=== PATIENT | female | born 1990 ===

== ENCOUNTER 2017-11-03 02:04 | Emergency (ER) | payer MEDICAID, OTHER ==
[2017-11-03] MEDS ORDERED: Sodium Chloride 0.9% 1,000 ML IV ONE (02:22)
--- NOTE | 2017-11-03 02:22 | C.PDOC ---
History Of Present Illness The patient presents to the ED for evaluation of severe epigastric abdominal pain and nausea which began today. Patient describes a sharp, stabbing pain which radiates to her back. She denies fever, chills, vomiting, diarrhea, or urinary symptoms. Patient is A2. Time Seen by Provider: 11/03/17 02:22 Chief Complaint (Nursing): Abdominal Pain History Per: Patient History/Exam Limitations: no limitations Onset/Duration Of Symptoms: Hrs Current Symptoms Are (Timing): Still Present Context: Other (unknown ) Severity: Moderate Pain Scale Rating Of: 6 Location Of Pain/Discomfort: Epigastric (mid ) Radiation Of Pain To:: Back Quality Of Discomfort: Sharp, Stabbing, "Pain" Associated Symptoms: Nausea. denies: Fever, Chills, Vomiting, Diarrhea, Urinary Symptoms Exacerbating Factors: None Alleviating Factors: None Last Bowel Movement: Today Recent travel outside of the [place]: No Additional History Per: Patient Abnormal Vaginal Bleeding: No Past Medical History Reviewed: Historical Data, Nursing Documentation, Vital Signs Vital Signs: Last Vital Signs Temp 98.7 F 11/03/17 04:14 Pulse 78 11/03/17 05:39 Resp 18 11/03/17 05:39 BP 90/44 L 11/03/17 05:39 Pulse Ox 100 11/03/17 06:06 - Medical History PMH: No Chronic Diseases Surgical History: No Surg Hx Family History: States: Unknown Family Hx - Social History Hx Alcohol Use: No Hx Substance Use: No - Immunization History Hx Tetanus Toxoid Vaccination: No Hx Influenza Vaccination: No Hx Pneumococcal Vaccination: No Review Of Systems Constitutional: Negative for: Fever, Chills Cardiovascular: Negative for: Chest Pain, Palpitations Respiratory: Negative for: Cough, Shortness of Breath Gastrointestinal: Positive for: Nausea, Abdominal Pain (mid-epigastric ). Negative for: Vomiting, Diarrhea Genitourinary: Negative for: Dysuria, Frequency, Hematuria Musculoskeletal: Positive for: Back Pain Skin: Negative for: Rash, Lesions, Jaundice, Bruising Neurological: Negative for: Weakness, Numbness Physical Exam - Physical Exam Appears: Non-toxic, No Acute Distress Skin: Warm, Dry Head: Normacephalic Eye(s): bilateral: Normal Inspection Oral Mucosa: Moist Neck: Supple Chest: Symmetrical, No Deformity Cardiovascular: Rhythm Regular, No Murmur Respiratory: No Rales, No Rhonchi, No Wheezing Gastrointestinal/Abdominal: Soft, Tenderness (mid-epigastric and periumbilical ) , No Guarding, No Rebound Back: CVA Tenderness (mild, right-sided ) Extremity: Normal ROM, Capillary Refill (less than 2 seconds ) Neurological/Psych: Oriented x3 ED Course And Treatment - Laboratory Results Result Diagrams: 11/03/17 02:27 11/03/17 02:27 Lab Interpretation: No Acute Changes O2 Sat by Pulse Oximetry: 100 (on RA) Pulse Ox Interpretation: Normal - CT Scan/US Ultrasound Other Rad Studies (CT/US): Read By Radiologist, Radiology Report Reviewed CT/US Interpretation: EXAM: US First Trimester, Transabdominal. US , Transvaginal. CLINICAL HISTORY: 26 years old, female; Pain; complicated by abdominal or pelvic pain; Lower; First. trimester; Gestational age or lmp: 10/17/2017; ; Additional info: Abd pain, back pain,. possible ectopic. TECHNIQUE: Real-time transabdominal and transvaginal obstetrical ultrasound of the maternal pelvis and a first. trimester with image documentation. Transvaginal imaging was used for better evaluation. of the fetus and adnexa. Real time cine loop images are submitted. 78 images are. submitted.Grayscale, color and spectral pulse Doppler images are submitted.A duplex/doppler. ultrasound was performed specifically BOTH COLOR FLOW AND spectral Doppler analysis. (waveforms) were performed and interpreted. COMPARISON: No relevant prior studies available. FINDINGS: Gestation: See below. Placenta/amniotic fluid: Cannot be adequately evaluated due to the early gestational age. Uterus/cervix: The endometrial stripe measures 7 mm. No myometrial mass. Ovaries: There is left adnexal mass measuring 2.1 x 1.5 x 2.1 cm medial to the left ovary suspicious. for ectopic until proven otherwise. The right ovary measures 2.1 x 1.6 x 3.0 cm. Duplex. assessment demonstrates presence of color Doppler signal and spectral Doppler waveform in right. ovary. The left ovary measures 2.4 x 1.5 x 2.6 cm. Duplex assessment demonstrates presence of. color Doppler signal and spectral Doppler waveform in left ovary. Free fluid: No free fluid. IMPRESSION: 1. There is left adnexal mass measuring 2.1 x 1.5 x 2.1 cm medial to the left ovary suspicious. for ectopic until proven otherwise. 2. No demonstrable intrauterine or extrauterine . With a positive test, the. differential diagnosis includes a recent spontaneous and very early intrauterine or extra. uterine . Careful follow-up including correlation with beta HCG levels is recommended. The possibility of ectopic cannot be excluded at this time. Progress Note: Bloodwork and urinalysis ordered. Morphine IVP, Zofran IVP and IV Fluids given. Patients urine HCG results are positive. 1st Trimester/OB Ultrasound ordered. 5:[address] blandon - oil changer- will come and see the pt. as per dr blandon - pt opting for methotrexate treatment; will retrun on thursday for repeat bHCG Reevaluation Time: 06:44 Reassessment Condition: Improved Critical Care Time - Critical Care Note Total Time (in mins): 30 Documented critical care: time excludes all time spent performing seperately billable procedures. Disposition Counseled Patient/Family Regarding: Studies Performed, Diagnosis, Need For Followup - Disposition Referrals: [facility] [Outside] [facility] [Outside] Disposition: HOME/ ROUTINE Disposition Time: 02:22 Condition: FAIR Additional Instructions: Por favor regrese el viernes 24 de denita para repetir el anlisis de lenny Instructions: Ectopic (DC) Forms: [facility] (Hungarian) Print Language: YORUBA - Clinical Impression Clinical Impression: Ectopic , tubal - Scribe Statement The provider has reviewed the documentation as recorded by the Scribe (Monica Chew) Provider Attestation: All medical record entries made by the Scribe were at my direction and personally dictated by me. I have reviewed the chart and agree that the record accurately reflects my personal performance of the history, physical exam, medical decision making, and the department course for this patient. I have also personally directed, reviewed, and agree with the discharge instructions and disposition.
[2017-11-03] MEDS ORDERED: Sodium Chloride 0.9% 1,000 ML ONE (02:29)
[2017-11-03 02:32] LABS: BASO # 0.1 K/uL (0.0-0.2); BASO % 1.2 % (0.0-2.0); EOS # 0.2 K/uL (0.0-0.7); EOS % 1.8 % (0.0-4.0); HCG,QUALITATIVE URINE POSITIVE (NEGATIVE); HEMOGLOBIN 13.7 g/dL (11.0-16.0); LYMPH # 3.1 K/uL (1.0-4.3); LYMPH % 33.4 % (20.0-40.0); MEAN CELL VOLUME 80.7 fL (81.0-99.0); MEAN CORPUSCULAR HEMOGLOBIN 28.5 pg (27.0-31.0); MEAN CORPUSCULAR HGB CONC 35.3 g/dL (33.0-37.0); MEAN PLATELET VOLUME 9.5 fL (7.2-11.7); MONO # 0.7 K/uL (0.0-0.8); MONO % 7.2 % (0.0-10.0); NEUT # 5.2 K/uL (1.8-7.0); NEUT % 56.4 % (50.0-75.0); NRBC % 0.1 % (0.0-2.0); RBC 4.81 Mil/uL (3.80-5.20); RED CELL DISTRIBUTION WIDTH 13.2 % (11.5-14.5); WHITE BLOOD COUNT 9.2 K/uL (4.8-10.8)
[2017-11-03 02:37] LABS: SQUAMOUS EPITHIAL 6 /hpf (0-5); URINE BILIRUBIN NEGATIVE (NEGATIVE); URINE BLOOD 2+ (NEGATIVE); URINE CLARITY Clear (Clear); URINE COLOR Straw (YELLOW); URINE GLUCOSE (UA) NORMAL (Normal); URINE LEUKOCYTE ESTERASE NEG Leu/uL (Negative); URINE PROTEIN NEGATIVE (NEGATIVE); URINE UROBILINOGEN NORMAL mg/dL (0.2-1.0)
[2017-11-03 02:39] LABS: INR 1.1; PROTHROMBIN TIME 11.9 SECONDS (9.7-12.2)
[2017-11-03 02:47] LABS: ALB/GLOB RATIO 1.6 (1.0-2.1); ALBUMIN 5.2 g/dL (3.5-5.0); ALT/SGPT 14 U/L (9-52); AST/SGOT 20 U/L (14-36); BLOOD UREA NITROGEN 11 mg/dL (7-17); CALCIUM 10.3 mg/dl (8.6-10.4); GFR NON-AFRICAN AMERICAN > 60; LIPASE 240 U/L (23-300)
--- NOTE | 2017-11-03 06:58 | CP.PCM.CON ---
History of Present Illness - History of Present Illness History of Present Illness: Pt is a 26yo LMP 10/17/17 presented to ED w/ c/o acute severe midepigastric pain with radiation to back @ 12am. She denies emesis/ pelvic pain. Pt states she is taking a monthly contraceptive, cyclofemo, from [facility] which she takes when her menses ends. She states her lmp was irregular in that the bleeding has been light but has continued to present. Last coitus 4days ago. POBXH: CD x2; EAB w/ d&c in early 1st trim x2 PSHX: as above nkda medic: Cyclofem PMXH: cholelithiasis Review of Systems - Constitutional Constitutional: absent: Anorexia, Chills, Fatigue - Cardiovascular Cardiovascular: absent: Chest Pain - Respiratory Respiratory: absent: Dyspnea on Exertion - Gastrointestinal Gastrointestinal: Abdominal Pain, Nausea. absent: Change in Bowel Habits, Vomiting - Genitourinary Genitourinary: absent: Difficulty Urinating - Reproductive: Female Reproductive:Female: Abnormal Vaginal Bleeding. absent: Pelvic Pain - Neurological Neurological: Weakness Past Patient History - Infectious Disease Hx of Infectious Diseases: None - Past Social History Smoking Status: Never Smoked - PSYCHIATRIC Hx Substance Use: No - SURGICAL HISTORY Hx Surgeries: Yes Hx Section: Yes - ANESTHESIA Hx Anesthesia: Yes Hx Anesthesia Reactions: No Meds Allergies/Adverse Reactions: Allergies Allergy/AdvReac Type Severity Reaction Status Date / Time No Known Allergies Allergy Verified 11/03/17 02:19 Physical Exam - Constitutional Appears: Well - Head Exam Head Exam: ATRAUMATIC, NORMOCEPHALIC - Respiratory Exam Respiratory Exam: NORMAL BREATHING PATTERN - GI/Abdominal Exam GI & Abdominal Exam: Soft. absent: Distended, Rebound, Tenderness - Exam Bimanual exam: absent: Cervical Motion Tendernes (adnexa nontender), Uterine Enlargement - Neurological Exam Neurological exam: Oriented x3 - Psychiatric Exam Psychiatric exam: Normal Affect, Normal Mood Results - Vital Signs Recent Vital Signs: Last Vital Signs Temp 98.7 F 11/03/17 04:14 Pulse 78 11/03/17 05:39 Resp 18 11/03/17 05:39 BP 90/44 L 11/03/17 05:39 Pulse Ox 100 11/03/17 06:46 - Labs Result Diagrams: 11/03/17 02:27 11/03/17 02:27 Labs: Laboratory Results - last 24 hr 11/03/17 11/03/17 11/03/17 02:27 02:27 02:27 WBC 9.2 RBC 4.81 Hgb 13.7 Hct 38.8 MCV 80.7 L MCH 28.5 MCHC 35.3 RDW 13.2 Plt Count 290 MPV 9.5 Neut % (Auto) 56.4 Lymph % (Auto) 33.4 [place] % (Auto) 7.2 Eos % (Auto) 1.8 Baso % (Auto) 1.2 Neut # (Auto) 5.2 Lymph # (Auto) 3.1 [place] # (Auto) 0.7 Eos # (Auto) 0.2 Baso # (Auto) 0.1 PT 11.9 INR 1.1 APTT 35 H Sodium Potassium Chloride Carbon Dioxide Anion Gap BUN Creatinine Est GFR ( Amer) Est GFR (Non-Af Amer) Random Glucose Calcium Total Bilirubin AST ALT Alkaline Phosphatase Total Protein Albumin Globulin Albumin/Globulin Ratio Lipase Beta HCG, Quant Urine Color Straw Urine Clarity Clear Urine pH 7.0 Ur Specific [place] 1.012 Urine Protein Negative Urine Glucose (UA) Normal Urine Ketones Negative Urine Blood 2+ H Urine Nitrate Negative Urine Bilirubin Negative Urine Urobilinogen Normal Ur Leukocyte Esterase Neg Urine WBC (Auto) < 1 Urine RBC (Auto) 4 H Ur Squamous Epith Cells 6 H Urine HCG, Qual Positive Blood Type Antibody Screen 11/03/17 11/03/17 11/03/17 02:27 02:35 02:48 WBC RBC Hgb Hct MCV MCH MCHC RDW Plt Count MPV Neut % (Auto) Lymph % (Auto) [place] % (Auto) Eos % (Auto) Baso % (Auto) Neut # (Auto) Lymph # (Auto) [place] # (Auto) Eos # (Auto) Baso # (Auto) PT INR APTT Sodium 143 Potassium 4.0 Chloride 103 Carbon Dioxide 23 Anion Gap 21 H BUN 11 Creatinine 0.6 L Est GFR ( Amer) > 60 Est GFR (Non-Af Amer) > 60 Random Glucose 103 Calcium 10.3 Total Bilirubin 0.6 AST 20 ALT 14 Alkaline Phosphatase 64 Total Protein 8.5 H Albumin 5.2 H Globulin 3.3 Albumin/Globulin Ratio 1.6 Lipase 240 Beta HCG, Quant 2324.50 Urine Color Urine Clarity Urine pH Ur Specific [place] Urine Protein Urine Glucose (UA) Urine Ketones Urine Blood Urine Nitrate Urine Bilirubin Urine Urobilinogen Ur Leukocyte Esterase Urine WBC (Auto) Urine RBC (Auto) Ur Squamous Epith Cells Urine HCG, Qual Blood Type B POSITIVE Antibody Screen Negative - Imaging and Cardiology US - abdomen Status: Image reviewed by me, Report reviewed by me (Left adnexal mass measuring 2.1 x 1.5 x 2.1 cm medial to the left ovary suspicious for ectopic ) Assessment & Plan - Assessment and Plan (Free Text) Assessment: I: Left Sided Ectopic P: Methotrexate today. Pt to retrun to hospital on day 4-Thursday,11/06, and day - Thursday 11/09 for follow up Quant HCG. d/w pt importance of compliance w/ f/u qhcgs. risk of rupture. she understands and agrees w/ plan. surgical treatment was also d/w pt she desires trial of MTX.
[2017-11-03] MEDS ORDERED: Methotrexate 50 mg/2 ml Inj IM ONE (07:00)
[2017-11-03 08:41] VITALS: BP 101/58; PULSE 71; RESP 15; TEMP 98.6; O2SAT 99
--- NOTE | 2017-11-03 08:44 | US ---
Pelvic ultrasound History: Pelvic pain. Evaluate for ectopic . Comparison: None available. Technique: Real-time sonography was performed through the pelvis. Findings: Uterus: 8.1 x 3.9 x 5.2 centimeters. Anteverted. Endometrium measures 7 millimeters. Cervix measures 3.7 centimeters. No discrete intrauterine identified. No free fluid in pelvic cul-de-sac. Right ovary: 2.1 x 1.6 x 3.0 centimeters. Normal flow. Left ovary: 2.4 x 1 5 x 2.6 centimeters. Normal flow. At the level of the left adnexa, there is a rounded echogenic structure with central hypoechoic focus measuring 2.1 x 1.5 x 2.1 centimeters. Impression: Left adnexal mass measuring up to 2.1 x 1.5 x 2.1 centimeters medial to the left ovary. In the setting of a positive test, this would be concerning for possible ectopic . Clinical correlation. No demonstrable intrauterine or extrauterine . With a positive test, differential diagnosis includes a recent spontaneous versus early intrauterine versus ectopic . Careful follow-up with correlation with beta HCG levels is recommended. Possibility of ectopic cannot be excluded. Clinical correlation. These findings were preliminarily reported at 5:02 a.m. on 11/03/[address] Jolie Miller from [employer].
== END 2017-11-03 08:41 | disposition home or self-care (01) ==
LOC: C.ER 02:04
DX: O00.109 Unspecified tubal pregnancy without intrauterine pregnancy (principal)
CPT/HCPCS: 76805; 76817; 80053; 81001; 83690; 84702; 84703; 85025; 85610; 85730; 86850; 86900; 96361; 96372; 96374; 96375; 99285; J2270; J2405; J7030; J9250

== ENCOUNTER 2017-11-06 07:31 | Emergency (ER) | payer MEDICAID, OTHER ==
[2017-11-06 07:36] VITALS: BMI 20.1
[2017-11-06 07:41] VITALS: RESP 18; O2SAT 100
--- NOTE | 2017-11-06 08:08 | C.PDOC ---
History Of Present Illness 27 y/o female A2 presents to ED for repeat Beta HCG. Patient states she was seen at ED on 11/03/17 and diagnosed with ectopic , had an injection administered and was told to come back today for repeat beta HCG. At ED patient c/o mild abdominal discomfort and denies vaginal bleeding, fever, chills or any other complaints at this time. Time Seen by Provider: 11/06/17 07:38 Chief Complaint (Nursing): Medical Clearance History Per: Patient History/Exam Limitations: no limitations Onset/Duration Of Symptoms: Days Current Symptoms Are (Timing): Still Present Past Medical History Reviewed: Historical Data, Nursing Documentation, Vital Signs Vital Signs: Last Vital Signs Temp 98.7 F 11/06/17 09:20 Pulse 64 11/06/17 09:20 Resp 18 11/06/17 09:20 BP 92/55 L 11/06/17 09:20 Pulse Ox 100 11/06/17 10:34 - Medical History PMH: No Chronic Diseases Surgical History: No Surg Hx Family History: States: No Known Family Hx - Social History Hx Alcohol Use: No Hx Substance Use: No - Immunization History Hx Tetanus Toxoid Vaccination: No Hx Influenza Vaccination: No Hx Pneumococcal Vaccination: No Review Of Systems Except As Marked, All Systems Reviewed And Found Negative. Gastrointestinal: Positive for: Abdominal Pain Physical Exam - Physical Exam Appears: Non-toxic, No Acute Distress Skin: Warm, Dry, No Rash Head: Atraumatic, Normacephalic Eye(s): bilateral: Normal Inspection Oral Mucosa: Moist Neck: Supple Cardiovascular: Rhythm Regular Respiratory: Normal Breath Sounds, No Rales, No Rhonchi, No Wheezing Gastrointestinal/Abdominal: Soft, No Tenderness, No Guarding, No Rebound Back: No CVA Tenderness Neurological/Psych: Oriented x3, Normal Speech, Normal Cognition ED Course And Treatment O2 Sat by Pulse Oximetry: 100 (RA) Pulse Ox Interpretation: Normal Medical Decision Making Medical Decision Making: Assessment: Ectopic Progress: D/w Dr Chase, made aware patient beta HCG is 2055. instructs patient be discharged and return on 11/09 for repeat beta HCG. Disposition Discussed With : Santos Chase Counseled Patient/Family Regarding: Studies Performed, Diagnosis, Need For Followup - Disposition Disposition: HOME/ ROUTINE Disposition Time: 10:29 Condition: STABLE Additional Instructions: return to ER this thursday 11/09 for repeat bhcg return to ER sooner if symptoms worsens Instructions: Ectopic Forms: Gen Discharge Inst Cymro, [employer] [employer] [facility] (Cymro) Print Language: MALDIVIAN - Clinical Impression Clinical Impression: Ectopic , tubal - Scribe Statement The provider has reviewed the documentation as recorded by the Pkibjan Garza All medical record entries made by the Pkibjan were at my direction and personally dictated by me. I have reviewed the chart and agree that the record accurately reflects my personal performance of the history, physical exam, medical decision making, and the department course for this patient. I have also personally directed, reviewed, and agree with the discharge instructions and disposition.
[2017-11-06 10:43] VITALS: BP 106/62; PULSE 68; TEMP 98.6
== END 2017-11-06 10:46 | disposition home or self-care (01) ==
LOC: C.ER 07:31
DX: O00.109 Unspecified tubal pregnancy without intrauterine pregnancy (principal)

== ENCOUNTER 2017-11-09 06:56 | Emergency (ER) | payer MEDICAID, OTHER ==
[2017-11-09 06:56] VITALS: BMI 20.1
[2017-11-09 07:13] VITALS: RESP 16
--- NOTE | 2017-11-09 08:58 | C.PDOC ---
History Of Present Illness 27 year old female presents to the emergency department for a repeat beta-quant s/p Methotrexate on 11-03-17 for an ectopic . Patient had a repeat beta on 11-06 which was 2055. Time Seen by Provider: 11/09/17 07:12 Chief Complaint (Nursing): Medical Clearance History Per: Patient History/Exam Limitations: no limitations Onset/Duration Of Symptoms: Hrs Current Symptoms Are (Timing): Still Present Past Medical History Reviewed: Historical Data, Nursing Documentation, Vital Signs Vital Signs: Last Vital Signs Temp 98.3 F 11/09/17 07:12 Pulse 84 11/09/17 07:12 Resp 16 11/09/17 07:12 BP 104/71 11/09/17 07:12 Pulse Ox 100 11/09/17 09:11 - Medical History PMH: No Chronic Diseases Surgical History: No Surg Hx Family History: States: No Known Family Hx - Social History Hx Alcohol Use: No Hx Substance Use: No - Immunization History Hx Tetanus Toxoid Vaccination: No Hx Influenza Vaccination: No Hx Pneumococcal Vaccination: No Review Of Systems Except As Marked, All Systems Reviewed And Found Negative. Gastrointestinal: Negative for: Nausea, Vomiting, Abdominal Pain Physical Exam - Physical Exam Appears: Non-toxic, No Acute Distress Skin: Warm, Dry Head: Atraumatic, Normacephalic Eye(s): bilateral: Normal Inspection Neck: Normal, Supple Chest: Symmetrical Cardiovascular: Rhythm Regular, No Murmur Respiratory: Normal Breath Sounds, No Rales, No Rhonchi, No Wheezing Gastrointestinal/Abdominal: Normal Exam, Soft, No Tenderness, No Guarding, No Rebound Neurological/Psych: Oriented x3, Normal Speech, Normal Cognition ED Course And Treatment O2 Sat by Pulse Oximetry: 100 (RA) Pulse Ox Interpretation: Normal Progress Note: Plan: Beta-HCG Quantitative. Will discuss with patient's OB- SCENARIO WRITER. - Physician Consult Information Physician Contacted: Santos Chase Outcome Of Conversation: Discussed patient with solar sales specialist, patient's beta is dropping appropriately, should be repeated on Nov 16. Disposition Counseled Patient/Family Regarding: Diagnosis, Need For Followup - Disposition Referrals: [facility] EMERGENCY DEPARTMENT [Provider Group] [facility] at [facility] [Outside] Disposition: HOME/ ROUTINE Disposition Time: 09:00 Condition: STABLE Additional Instructions: REGRESE AL KENJI DE EMERGENCIAS EL LUNES 3 DE SEPTIEMBRE PARA REPETIR EL NIVEL HORMONAL ETURN TO EMERGENCY ROOM ON ThursdayNOV 16 FOR REPEAT HORMONE LEVEL Instructions: hCG Test Forms: [facility] (Chinese), General Discharge Instructions Print Language: KHMER - Clinical Impression Clinical Impression: Normal exam - Scribe Statement The provider has reviewed the documentation as recorded by the Scribe (Magan Wei) Provider Attestation: All medical record entries made by the Scribe were at my direction and personally dictated by me. I have reviewed the chart and agree that the record accurately reflects my personal performance of the history, physical exam, medical decision making, and the department course for this patient. I have also personally directed, reviewed, and agree with the discharge instructions and disposition.
[2017-11-09 09:13] VITALS: BP 120/79; PULSE 85; TEMP 98.4
[2017-11-09 09:14] VITALS: O2SAT 100
== END 2017-11-09 09:13 | disposition home or self-care (01) ==
LOC: C.ER 06:56
DX: Z00.00 Encounter for general adult medical examination without abnormal findings (principal)

== ENCOUNTER 2017-11-16 07:24 | Emergency (ER) | payer MEDICAID, OTHER ==
[2017-11-16 07:25] VITALS: BMI 20.1
[2017-11-16 07:37] VITALS: BP 100/65; PULSE 70; RESP 18; TEMP 98.6; O2SAT 100
--- NOTE | 2017-11-16 07:56 | C.PDOC ---
History Of Present Illness 27 year old female patient presents to the ER for repeat of labs. Patient reports she was in [facility] ER on 11/03 for abdominal pain: US was preformed, (+) ectopic . US showed rounded echogenic structure on the left ovary. Patient received OB consult and given methotrexate. Patient was then told to return to the ER later on for repeat of labs. Patients beta results on 11/03: 2, 324; 11/06: 2,056; and 11/09: 1,536. Patient currently denies abdominal pain, nausea, vomiting, back pain and dysuria. Patient has minimal vaginal spotting, but reports it is better than last time. Time Seen by Provider: 11/16/17 07:32 Chief Complaint (Nursing): Abnormal Labs History Per: Patient History/Exam Limitations: no limitations Onset/Duration Of Symptoms: Days Current Symptoms Are (Timing): Better Past Medical History Reviewed: Historical Data, Nursing Documentation, Vital Signs Vital Signs: Last Vital Signs Temp 98.6 F 11/16/17 07:31 Pulse 70 11/16/17 07:31 Resp 18 11/16/17 07:31 BP 100/65 11/16/17 07:31 Pulse Ox 100 11/16/17 08:55 Family History: States: No Known Family Hx - Social History Hx Alcohol Use: No Hx Substance Use: No - Immunization History Hx Tetanus Toxoid Vaccination: No Hx Influenza Vaccination: No Hx Pneumococcal Vaccination: No Review Of Systems Except As Marked, All Systems Reviewed And Found Negative. Gastrointestinal: Negative for: Nausea, Vomiting, Abdominal Pain Genitourinary: Negative for: Dysuria, Other (minimal vaginal spotting) Musculoskeletal: Negative for: Back Pain Physical Exam - Physical Exam Appears: Well, Non-toxic, No Acute Distress Skin: Normal Color, Warm, Dry Head: Atraumatic, Normacephalic Cardiovascular: Rhythm Regular Respiratory: Normal Breath Sounds Gastrointestinal/Abdominal: Soft, No Tenderness Back: No CVA Tenderness Extremity: Normal ROM (x4) Neurological/Psych: Oriented x3, Normal Speech Gait: Steady ED Course And Treatment O2 Sat by Pulse Oximetry: 100 (RA) Pulse Ox Interpretation: Normal Medical Decision Making Medical Decision Making: Impression: repeat labs Plans: -- Beta-HCG Reassess: Patient is resting comfortably. Patient remain stable and afebrile. BHCG is 444.19. Patient is instructed to f/u with clinic in 1-2 days. Disposition Counseled Patient/Family Regarding: Studies Performed, Diagnosis, Need For Followup - Disposition Referrals: [facility] [Outside] Disposition: HOME/ ROUTINE Disposition Time: 08:56 Condition: STABLE Additional Instructions: Siga en la clinica. Forms: [facility] [facility] (Stateless), Gen Discharge Inst Stateless - POA Present On Arrival: None - Clinical Impression Clinical Impression: Ectopic - Scribe Statement The provider has reviewed the documentation as recorded by the Pkibjan Harris Do Provider Attestation: All medical record entries made by the Scribe were at my direction and personally dictated by me. I have reviewed the chart and agree that the record accurately reflects my personal performance of the history, physical exam, medical decision making, and the department course for this patient. I have also personally directed, reviewed, and agree with the discharge instructions and disposition.
== END 2017-11-16 09:09 | disposition home or self-care (01) ==
LOC: C.ER 07:24
DX: O00.90 Unspecified ectopic pregnancy without intrauterine pregnancy (principal)